=== PATIENT | female | born 1970 | race African-American/Black ===

== ENCOUNTER 2016-07-15 02:49 | Inpatient (IN) | payer MEDICAID ==
[~2016-07-15] VITALS: Ht 172.7 cm; Wt 114.4 kg
[~2016-07-15 02:49] MED LIST: GABA-531 PO; QUET300T2 PO; SERT50TA12 PO
[2016-07-15] MEDS ORDERED: TRAM50TA4 PO (02:56)
[2016-07-15] MEDS ORDERED: NALOXONE HCL 1 MG/ML 2 ML SYG IVP ONE (03:00)
[2016-07-15 03:06] LABS: GLUCOSE COMMENT 1 Doctor Notified; GLUCOSE,POINT OF CARE 82 MG/DL (70-110)
[2016-07-15 04:09] LABS: ANION GAP 9 mmol/L (8-16); CALCIUM, TOTAL 8.6 mg/dL (8.8-10.5); CARBON DIOXIDE 26 mmol/L (22-29); CHLORIDE 102 mmol/L (98-107); CREATININE 1.42 mg/dL (0.60-1.30); GLOMERULAR FILTR. RATE CALC 49 mL/min (>60); POTASSIUM 3.5 mmol/L (3.5-5.1); SODIUM SERUM 137 mmol/L (136-145); UREA NITROGEN, BLOOD 19 mg/dL (7-18)
[2016-07-15 04:15] LABS: BASOPHILS # (AUTO) 0.03 K/uL (0.00-0.20); BASOPHILS % (AUTO) 0.2 % (0.0-2.0); EOSINOPHILS # (AUTO) 0.01 K/uL (0.00-0.70); EOSINOPHILS % (AUTO) 0.06 % (1.0-6.0); HEMATOCRIT 46.1 % (36-46); HEMOGLOBIN 14.9 g/dL (12.0-16.0); LYMPHOCYTES # (AUTO) 1.1 K/uL (1.0-4.8); LYMPHOCYTES % (AUTO) 7.9 % (22.0-44.0); MEAN CORPUSCULAR HEMOGLOBIN 26.8 pg (26.0-34.0); MEAN CORPUSCULAR HGB CONC 32.2 G/dL (31.0-37.0); MEAN CORPUSCULAR VOLUME 83 fL (80-100); MONOCYTES # (AUTO) 1.3 K/uL (0.1-1.0); NEUTROPHILS # (AUTO) 11.7 K/uL (1.8-7.7); NEUTROPHILS % (AUTO) 82.9 % (40.0-70.0); PLATELET COUNT (AUTO) 333 K/uL (150-450); RED BLOOD CELL COUNT(AUTO) 5.54 MIL/uL (4.00-5.20); RED CELL DISTRIBUTION WIDTH 14.9 % (11.5-14.5); WHITE BLOOD COUNT (AUTO) 14.1 K/uL (4.5-11.0)
[2016-07-15 04:16] LABS: APPEARANCE,URINE CLOUDY (CLEAR); GLUCOSE, URINE (UA) NEGATIVE (NEGATIVE); KETONES,URINE TRACE mg/dL (NEGATIVE); LEUKOCYTE ESTERASE ,URINE NEGATIVE (NEGATIVE); OCCULT BLOOD,URINE NEGATIVE (NEGATIVE); PH,URINE 5.5 (5.0-8.0); PROTEIN,URINE POS 1+ (NEGATIVE); TROPONIN I 0.04 ng/mL (0.00-0.05)
[2016-07-15 04:18] LABS: ADD UA MICROSCOPIC NO
[2016-07-15 04:20] LABS: PROTHROMBIN TIME 10.7 SEC (9.4-11.6)
[2016-07-15 04:33] LABS: ALANINE AMINOTRANSFERASE 40 U/L (12-78); ALBUMIN 3.2 g/dL (3.4-5.0); ASPARTATE AMINOTRANSFERASE 30 U/L (15-37); BILIRUBIN,TOTAL 0.6 mg/dL (0.1-1.0); CREATINE KINASE MB 2.4 ng/mL (0-5); CREATINE KINASE, TOTAL 208 U/L (26-192); TOTAL PROTEIN, SERUM 6.6 g/dL (6.4-8.2)
[2016-07-15 04:57] LABS: ACETAMINOPHEN < 2 mcg/mL (10-30)
[2016-07-15 05:31] LABS: SALICYLATE < 2.8 mg/dL (2.8-20.0)
[2016-07-15] MEDS ORDERED: SODIUM CHLORIDE 0.9% 1,000 ML IV ONE (07:15)
[2016-07-15 07:56] LABS: ANION GAP 8 mmol/L (8-16); CALCIUM, TOTAL 8.8 mg/dL (8.8-10.5); CARBON DIOXIDE 27 mmol/L (22-29); CHLORIDE 102 mmol/L (98-107); CREATININE 1.17 mg/dL (0.60-1.30); GLOMERULAR FILTR. RATE CALC > 60 mL/min (>60); POTASSIUM 3.9 mmol/L (3.5-5.1); SODIUM SERUM 137 mmol/L (136-145); UREA NITROGEN, BLOOD 18 mg/dL (7-18)
[2016-07-15 08:04] LABS: SALICYLATE < 2.8 mg/dL (2.8-20.0)
[2016-07-15 08:07] LABS: ALANINE AMINOTRANSFERASE 42 U/L (12-78); ALBUMIN 3.3 g/dL (3.4-5.0); ASPARTATE AMINOTRANSFERASE 35 U/L (15-37); BILIRUBIN,TOTAL 0.6 mg/dL (0.1-1.0)
[2016-07-15 08:19] LABS: ACETAMINOPHEN < 2 mcg/mL (10-30)
[2016-07-15] MEDS ORDERED: ZOLPIDEM TARTRATE 10 MG TABLET PO PRN (10:30)
[2016-07-15] MEDS ORDERED: HALOPERIDOL 5 MG TABLET PO PRN (10:30)
[2016-07-16 02:02] VITALS: BP 132/85
[2016-07-16] MEDS ORDERED: INFLUENZA VIRUS VACCINE QVS 2016-17 (3YR+)/PF 60 MCG/0.5 ML SYRINGE IM ONE (02:15)
[2016-07-16 08:07] VITALS: BP 161/87
[2016-07-16] MEDS ORDERED: DiphenhydrAMINE HCL 50 MG/ML VIAL ONE (08:19)
[2016-07-16] MEDS ORDERED: HALOPERIDOL LACTATE 5 MG/ML VIAL ONE (08:19)
[2016-07-16] MEDS ORDERED: LORazepam 2 MG/ML VIAL ONE (08:19)
[2016-07-16] MEDS ORDERED: LORazepam 2 MG/ML VIAL IM ONE (08:30)
[2016-07-16] MEDS ORDERED: HALOPERIDOL LACTATE 5 MG/ML VIAL IM ONE (08:30)
[2016-07-16] MEDS ORDERED: DiphenhydrAMINE HCL 50 MG/ML VIAL IM ONE (08:30)
[2016-07-16] MEDS: LEVOFLOXACIN 500 MG TABLET PO SCH (12:34)
[2016-07-16 12:36] LABS: APPEARANCE,URINE CLEAR (CLEAR); GLUCOSE, URINE (UA) NEGATIVE (NEGATIVE); KETONES,URINE NEGATIVE (NEGATIVE); LEUKOCYTE ESTERASE ,URINE NEGATIVE (NEGATIVE); PROTEIN,URINE NEGATIVE (NEGATIVE)
[2016-07-16 12:54] LABS: OCCULT BLOOD,URINE SMALL (NEGATIVE); WBC,URINE None Seen /HPF (0-5)
[2016-07-16] MEDS: LORazepam 2 MG TABLET PO PRN (20:45)
[2016-07-16] MEDS: FluPHENAZine HCL 5 MG TABLET PO SCH (21:00)
[2016-07-17] MEDS: FluPHENAZine HCL 5 MG TABLET PO SCH ×3 (08:21→17:45)
[2016-07-17] MEDS: LEVOFLOXACIN 500 MG TABLET PO SCH (08:21)
[2016-07-17] MEDS: LORazepam 2 MG TABLET PO PRN (12:05)
[2016-07-17 16:00] VITALS: BP 141/92
[2016-07-18] MEDS: LORazepam 2 MG TABLET PO PRN (07:11)
[2016-07-18 08:00] VITALS: BP 150/94
[2016-07-18] MEDS: FluPHENAZine HCL 5 MG TABLET PO SCH (09:57)
[2016-07-18] MEDS: LEVOFLOXACIN 500 MG TABLET PO SCH (09:57)
[2016-07-18] MEDS ORDERED: FLUP5 PO (10:19)
[2016-07-18] MEDS ORDERED: LEVO500 PO (10:26)
== END 2016-07-18 12:15 | disposition home or self-care (01) | DRG 751 ==
LOC: EMS 02:49 → 3EI 21:01 → 3EC 07-16 08:41
PROVIDERS: ADMIT Psychiatry & Neurology Psychiatry; ATTEND Psychiatry & Neurology Psychiatry
DX: F29 Unspecified psychosis not due to a substance or known physiological condition (principal); G93.40 Encephalopathy, unspecified; N17.9 Acute kidney failure, unspecified; E66.9 Obesity, unspecified; F15.20 Other stimulant dependence, uncomplicated; F14.10 Cocaine abuse, uncomplicated; F12.10 Cannabis abuse, uncomplicated; F17.200 Nicotine dependence, unspecified, uncomplicated; F31.9 Bipolar disorder, unspecified; I10 Essential (primary) hypertension; E44.1 Mild protein-calorie malnutrition; Z20.6 Contact with and (suspected) exposure to human immunodeficiency virus [HIV]; Z82.49 Family history of ischemic heart disease and other diseases of the circulatory system; Z83.6 Family history of other diseases of the respiratory system; Z68.38 Body mass index [BMI] 38.0-38.9, adult; Z79.899 Other long term (current) drug therapy; Z28.21 Immunization not carried out because of patient refusal; Z68.1 Body mass index [BMI] 19.9 or less, adult
CPT/HCPCS: 51702; 70450; 82962; 93005; 96361; 96374; 99291; 99406; G0480; G0481; J1200; J1630; J2060; J2310; J7030

== ENCOUNTER 2016-08-18 17:15 | Emergency (ER) | payer MEDICAID ==
[~2016-08-18] VITALS: Ht 172.7 cm; Wt 81.8 kg
[~2016-08-18 17:15] MED LIST changes: +FLUP5 PO; -GABA-531 PO; +LEVO500 PO; -QUET300T2 PO; -SERT50TA12 PO
[2016-08-18 18:24] LABS: BASOPHILS % (AUTO) 0.4 % (0.0-2.0); EOSINOPHILS % (AUTO) 0.6 % (1.0-6.0); HEMATOCRIT 37.6 % (36-46); HEMOGLOBIN 11.9 g/dL (12.0-16.0); LYMPHOCYTES # (AUTO) 1.4 K/uL (1.0-4.8); LYMPHOCYTES % (AUTO) 14.3 % (22.0-44.0); MEAN CORPUSCULAR HEMOGLOBIN 25.8 pg (26.0-34.0); MEAN CORPUSCULAR HGB CONC 31.6 G/dL (31.0-37.0); MEAN CORPUSCULAR VOLUME 82 fL (80-100); MONOCYTES # (AUTO) 0.7 K/uL (0.1-1.0); MONOCYTES % (AUTO) 7.1 % (2.0-9.0); NEUTROPHILS # (AUTO) 7.9 K/uL (1.8-7.7); NEUTROPHILS % (AUTO) 77.6 % (40.0-70.0); PLATELET COUNT (AUTO) 409 K/uL (150-450); RED BLOOD CELL COUNT(AUTO) 4.61 MIL/uL (4.00-5.20); WHITE BLOOD COUNT (AUTO) 10.1 K/uL (4.5-11.0)
[2016-08-18] MEDS ORDERED: KETOROLAC TROMETHAMINE 30 MG/ML VIAL IVP ONE (18:30)
[2016-08-18 18:32] LABS: ANION GAP 9 mmol/L (8-16); CALCIUM, TOTAL 9.1 mg/dL (8.8-10.5); CARBON DIOXIDE 29 mmol/L (22-29); CHLORIDE 101 mmol/L (98-107); CREATININE 0.89 mg/dL (0.60-1.30); GLOMERULAR FILTR. RATE CALC > 60 mL/min (>60); POTASSIUM 3.4 mmol/L (3.5-5.1); SODIUM SERUM 139 mmol/L (136-145); UREA NITROGEN, BLOOD 8 mg/dL (7-18)
[2016-08-18 18:41] LABS: RBC MORPHOLOGY COMMENT ABNORMAL RBC MORPH
[2016-08-18 18:57] LABS: ALANINE AMINOTRANSFERASE 25 U/L (12-78); ALBUMIN 3.2 g/dL (3.4-5.0); ASPARTATE AMINOTRANSFERASE 14 U/L (15-37); BILIRUBIN,TOTAL 0.5 mg/dL (0.1-1.0); CREATINE KINASE MB 1.6 ng/mL (0-5); CREATINE KINASE, TOTAL 183 U/L (26-192); TOTAL PROTEIN, SERUM 7.8 g/dL (6.4-8.2)
[2016-08-18 18:59] LABS: B-TYPE NATRIURETIC PEPTIDE 84 pg/mL (0-100)
[2016-08-18 19:39] LABS: APPEARANCE,URINE CLOUDY (CLEAR); GLUCOSE, URINE (UA) NEGATIVE (NEGATIVE); KETONES,URINE 15 mg/dL (NEGATIVE); LEUKOCYTE ESTERASE ,URINE NEGATIVE (NEGATIVE); OCCULT BLOOD,URINE SMALL (NEGATIVE); PROTEIN,URINE POS 1+ (NEGATIVE)
[2016-08-18 19:40] LABS: ADD UA MICROSCOPIC YES
[2016-08-18 19:44] LABS: SQUAMOUS EPITHELIAL CELL,UR Many /LPF (None Seen)
[2016-08-18] MEDS ORDERED: CIPROFLOXACIN HCL 250 MG TABLET PO ONE (20:15)
[2016-08-18 20:45] VITALS: BP 151/105
== END 2016-08-18 20:59 | disposition home or self-care (01) ==
LOC: EMS 17:15
DX: R07.89 Other chest pain (principal); F12.10 Cannabis abuse, uncomplicated; N39.0 Urinary tract infection, site not specified; I51.7 Cardiomegaly; F17.210 Nicotine dependence, cigarettes, uncomplicated; F31.9 Bipolar disorder, unspecified
CPT/HCPCS: 36415; 71010; 80053; 80307; 81001; 82550; 82553; 83690; 83880; 84484; 84703; 85025; 87086; 93005; 96374; 99285; J1885

== ENCOUNTER 2017-06-27 22:16 | Emergency (ER) | payer MEDICAID ==
[2017-06-26] MEDS: ALPRAZolam 0.25 MG TABLET PO ONE (23:45)
[~2017-06-27] VITALS: Ht 172.7 cm; Wt 90.9 kg
[~2017-06-27 22:16] MED LIST changes: -LEVO500 PO
[2017-06-27] MEDS ORDERED: QUET25TA PO (22:37)
[2017-06-27] MEDS ORDERED: PHEN-460 PO (22:37)
[2017-06-27] MEDS ORDERED: QUEtiapine FUMARATE 100 MG TABLET PO ONE (23:30)
[2017-06-27] MEDS: ALPRAZolam 0.25 MG TABLET PO ONE (23:44)
[2017-06-27 23:48] LABS: BASOPHILS # (AUTO) 0.19 K/uL (0.00-0.20); BASOPHILS % (AUTO) 2.8 % (0.0-2.0); EOSINOPHILS # (AUTO) 0.07 K/uL (0.00-0.70); EOSINOPHILS % (AUTO) 1.09 % (1.0-6.0); HEMATOCRIT 33.7 % (36-46); HEMOGLOBIN 10.8 g/dL (12.0-16.0); LYMPHOCYTES # (AUTO) 2.4 K/uL (1.0-4.8); LYMPHOCYTES % (AUTO) 35.5 % (22.0-44.0); MEAN CORPUSCULAR HEMOGLOBIN 23.3 pg (26.0-34.0); MEAN CORPUSCULAR VOLUME 73 fL (80-100); MONOCYTES # (AUTO) 0.8 K/uL (0.1-1.0); MONOCYTES % (AUTO) 11.5 % (2.0-9.0); NEUTROPHILS # (AUTO) 3.4 K/uL (1.8-7.7); NEUTROPHILS % (AUTO) 49.1 % (40.0-70.0); PLATELET COUNT (AUTO) 356 K/uL (150-450); RED BLOOD CELL COUNT(AUTO) 4.63 MIL/uL (4.00-5.20)
[2017-06-27 23:55] LABS: ANION GAP 9 mmol/L (8-16); CALCIUM, TOTAL 9.1 mg/dL (8.8-10.5); CARBON DIOXIDE 26 mmol/L (22-29); CHLORIDE 105 mmol/L (98-107); GLOMERULAR FILTR. RATE CALC > 60 mL/min (>60); GLUCOSE,RANDOM 97 mg/dL (70-110); POTASSIUM 3.6 mmol/L (3.5-5.1); SODIUM SERUM 140 mmol/L (136-145); UREA NITROGEN, BLOOD 19 mg/dL (7-18)
[2017-06-28 00:01] VITALS: BP 139/79
[2017-06-28 00:09] LABS: ALANINE AMINOTRANSFERASE 32 U/L (12-78); ALBUMIN 4.1 g/dL (3.4-5.0); ALKALINE PHOSPHATASE 83 U/L (46-116); ASPARTATE AMINOTRANSFERASE 31 U/L (15-37); BILIRUBIN,TOTAL 0.4 mg/dL (0.1-1.0); TOTAL PROTEIN, SERUM 8.2 g/dL (6.4-8.2)
[2017-06-28 00:11] LABS: PHENYTOIN (DILANTIN) < 0.5 mcg/mL (10.0-20.0)
== END 2017-06-28 00:05 | disposition home or self-care (01) ==
LOC: EMS 22:18
DX: R56.9 Unspecified convulsions (principal); F14.10 Cocaine abuse, uncomplicated; F41.9 Anxiety disorder, unspecified; E66.9 Obesity, unspecified; F31.9 Bipolar disorder, unspecified; F17.210 Nicotine dependence, cigarettes, uncomplicated; F12.90 Cannabis use, unspecified, uncomplicated; F15.90 Other stimulant use, unspecified, uncomplicated; Z02.89 Encounter for other administrative examinations; Z68.30 Body mass index [BMI] 30.0-30.9, adult
CPT/HCPCS: 36415; 80053; 80185; 84703; 85025; 99284; 99406; G0480

== ENCOUNTER 2017-12-16 03:12 | Emergency (ER) | payer SELFPAY ==
[~2017-12-16] VITALS: Ht 172.7 cm; Wt 79.5 kg
[~2017-12-16 03:12] MED LIST changes: -FLUP5 PO; +PHEN-460 PO; +QUET25TA PO
[2017-12-16 06:04] VITALS: BP 141/98
== END 2017-12-16 06:54 | disposition left against medical advice (07) ==
LOC: EMS 03:14
DX: L03.113 Cellulitis of right upper limb (principal); S50.861A Insect bite (nonvenomous) of right forearm, initial encounter; F12.90 Cannabis use, unspecified, uncomplicated; F15.90 Other stimulant use, unspecified, uncomplicated; F14.90 Cocaine use, unspecified, uncomplicated; F17.210 Nicotine dependence, cigarettes, uncomplicated; W57.XXXA Bitten or stung by nonvenomous insect and other nonvenomous arthropods, initial encounter; Y93.89 Activity, other specified; Y92.89 Other specified places as the place of occurrence of the external cause; Y99.8 Other external cause status
CPT/HCPCS: 99283

== ENCOUNTER 2018-08-28 00:58 | Emergency (ER) | payer MEDICAID ==
[~2018-08-28] VITALS: Ht 172.7 cm; Wt 78.2 kg
[2018-08-28 04:36] VITALS: BP 138/76
== END 2018-08-28 05:04 | disposition home or self-care (01) ==
LOC: EMS 00:58
DX: J02.8 Acute pharyngitis due to other specified organisms (principal); B97.89 Other viral agents as the cause of diseases classified elsewhere; K59.00 Constipation, unspecified; F31.9 Bipolar disorder, unspecified; F12.90 Cannabis use, unspecified, uncomplicated; F14.90 Cocaine use, unspecified, uncomplicated; F17.210 Nicotine dependence, cigarettes, uncomplicated
CPT/HCPCS: 87430